=== PATIENT | female | born 1935 | race Caucasian/White ===

== ENCOUNTER 2020-01-08 14:42 | Outpatient (CLI) | payer MEDICARE ==
[2020-01-08 16:14] LABS: ANION GAP 3 mmol/L (5-15); CALCIUM 8.9 mg/dL (8.5-10.1); CHLORIDE 110 mmol/L (98-107); CREATININE 1.26 mg/dL (0.55-1.02)
[2020-01-08 16:24] LABS: T4 (THYROXINE) 9.2 mcg/dL (4.8-13.9)
== END 2020-01-08 23:59 | disposition home or self-care (01) ==
LOC: CFH 14:42
PROVIDERS: ATTEND Physician Assistant Medical
DX: I10 Essential (primary) hypertension (principal); E88.81 Metabolic syndrome and other insulin resistance
CPT/HCPCS: 36415; 80048; 83036; 84436; 84481